=== PATIENT | male | born 1955 | race Caucasian/White ===

== ENCOUNTER → 2020-03-04 11:34 | Outpatient (BNVA) | payer OTHER, SELFPAY | PROVIDERS: Visit Provider Family Medicine | DX: H81.10 Benign paroxysmal vertigo, unspecified ear (principal); I10 Essential (primary) hypertension; I48.91 Unspecified atrial fibrillation; F17.210 Nicotine dependence, cigarettes, uncomplicated | CPT/HCPCS: 80053; 80061; 85025 ==

== ENCOUNTER 2021-01-22 12:26 | Emergency (ER) | payer OTHER, SELFPAY ==
[2021-01-22 12:31] VITALS: BP 178/87; PULSE 88; RESP 20; TEMP 36.6; O2SAT 97; BMI 45.3
[2021-01-22 12:46] VITALS: BP 119/63; PULSE 69; RESP 16; TEMP 37.1; O2SAT 98
--- NOTE | 2021-01-22 12:51 | ED_ITS ---
HPI - Allergic Reaction General: Chief complaint: Allergic Reaction Stated complaint: Chest Pain, Rash over entire body, swollen hands Time Seen by Provider: 01/22/21 12:51 History of Present Illness: HPI narrative: Mr. Velásquez is a 65-year-old gentleman with history of atrial fibrillation and hypertension who presents emergency department due to a rash. Onset of rash was subacute last night at approximately 8 PM. He describes an itchy generalized rash that involves full body including palms and soles. He denies known environmental exposure and denies similar reactions in the past. Intensity of itching is moderate. The course has persisted. Of note the patient recently completed a course of Bactrim for a insect bite/cellulitis. Additionally he noted a short acting strange episode of right arm weakness and right leg numbness which has since re solved and occurred at rest starting yesterday. No headaches or other focal neurologic symptoms at this time. He additionally endorses moderate intensity chest pressure on the right anterior chest. No other typical cardiac features. No other specific exacerbating or alleviating factors identified. Review of Systems General: Reports: 10 or more systems reviewed and unremarkable except in HPI and below PFSH ED PFSH: Medical History Current smoker History of bladder cancer Hypertension Lone atrial fibrillation Family History Other Cancer Social History Smoking and tobacco status: current every day smoker Household members: spouse Marital status: service: Yes status: Retired branch: [employer] Current occupational status: retired Current gender identity: Male Physical Exam Narrative: EXAM NARRATIVE: GENERAL/CONSTITUTIONAL - well-appearing. No acute distress. Obese Eyes - PERRL, no conjunctival injection ENMT - Atraumatic external nose and ears. Moist mucous membranes NECK - supple. trachea midline CARDIOVASCULAR - regular rate and rhythm. Peripheral pulses 2+ and equal RESPIRATORY -clear to auscultation bilaterally. No retractions or accessory muscle use. ABDOMEN/GI - Nontender/Nondistended. No tenderness to percussion or evidence of peritonitis MSK - Extremities without obvious deformity or tenderness to palpation SKIN - diffuse urticarial appearing rash though some lesions are not palpably raised which is atypical. There is swelling of the hands and feet associated with this. No vesicular lesions. No blistering or discrimination. No involvement of oral mucosa. NEURO - alert and appropriately oriented. strength and sensation intact. Moves all extremities equally. PSYCH - Appropriate mood and affect Course ED course: - Patient was seen and evaluated by me at bedside - Patient placed on cardiac monitors, IV access obtained - Initial evaluation notable for rash without evidence of anaphylaxis. -Symptom treatment ordered - Labs notable for mild leukocytosis though overall hemoconcentration. No significant metabolic abnormalities. Procalcitonin negative. Delta troponin negative. - Imaging notable for questionable opacity in the left lower lung which is felt to not be significant or require further imaging in the absence of pulmonary infectious symptoms and negative procalcitonin. This finding was discussed with the patient. CT imaging negative for acute finding. - Upon serial reexamination after treatment the patient was improved with improvement in the itchiness the rash persists. - Based on patient history, evaluation, labs, and imaging as interpreted the most likely cause of the patient's condition is likely allergic reaction. Rash appears most consistent with allergic reaction though nonspecific drug eruption related to recent Bactrim use it is also possible. - The results of ED evaluation were discussed with the patient including prescriptions and/or symptomatic cares (if applicable) including appropriate and responsible use, followup plan, and return precautions. The patient verbalized understanding and felt safe for discharge. - Patient discharged in satisfactory condition. Vital Signs: Vital signs: Vital Signs Temperature 98.7 F 01/22/21 12:46 Pulse Rate 74 01/22/21 16:33 Respiratory Rate 16 01/22/21 16:33 Blood Pressure 144/73 01/22/21 16:33 Pulse Oximetry 94 01/22/21 16:33 MDM - Allergic Reaction Medical Records: Attestation: I reviewed the patient's medical records. Lab Data: Attestation: I reviewed the patient's lab results. Labs: Lab Results 01/22/21 01/22/21 01/22/21 13:06 13:06 13:06 WBC 12.7 10^3/uL H 10 ^3/uL (4.0-10.0) RBC 6.01 10^6/uL H 10 ^6/uL (4.1-5.3) Hgb 16.4 g/dL g/dL (11.7-16.6) Hct 49.4 % % (42.0-52.0) MCV 82.2 fl fl (80-94) MCH 27.3 pg L pg (28.0-34.0) MCHC 33.2 g/dL g/dL (30.0-36.0) RDW 14.5 % % (12.1-15.1) Plt Count 294 10^3/cmm 10^3 /cmm (130-400) MPV 11.4 fL H fL (7.4-10.4) Neut % (Auto) 80.0 % % Lymph % (Auto) 13.8 % % [place] % (Auto) 5.3 % % Eos % (Auto) 0.2 % % Baso % (Auto) 0.2 % % Neut # (Auto) 10.19 10^3/uL H 1 0^3/uL (1.8-7.7) Lymph # (Auto) 1.8 10^3/uL 10^3/ uL (0.8-4.8) [place] # (Auto) 0.7 10^3/uL 10^3/ uL (0.2-0.9) Eos # (Auto) 0.0 10^3/uL 10^3/ uL (0.0-0.8) Baso # (Auto) 0.0 10^3/uL 10^3/ uL (0.0-0.1) Nucleated RBC % (a uto) 0 % % Nucleated RBCs # 0.0 /100WBC /100W BC Sodium 138 mmol/L mmol/L (136-145) Potassium 3.9 mmol/L mmol/L (3.5-5.1) Chloride 100 mmol/L mmol/L (98-107) Carbon Dioxide 27 mmol/L mmol/L (22-29) Anion Gap 14.9 (5-19) BUN 14 mg/dL mg/dL (8-23) Creatinine 0.7 mg/dL mg/dL (0.7-1.2) GFR Calculation 113.9 mL/min mL/m in (90-130) Glucose 103 mg/dL mg/dL (65-115) Calculated Osmolal ity 287 mOsm/kg mOsm/ kg (285-295) Lactate 1.3 mmol/L mmol/L (0.5-2.2) Calcium 9.6 mg/dL mg/dL (8.5-10.5) Total Bilirubin 0.7 mg/dL mg/dL (0.15-1.2) AST 13 U/L U/L (0-40) ALT 15 U/L U/L (0-41) Alkaline Phosphata se 77 IU/L IU/L (40-130) Troponin T Baselin e Troponin T 120 Min circle Delta Troponin T NT-Pro-B Natriuret Pep 44 pg/mL pg/mL (0-125) Total Protein 7.0 g/dL g/dL (6.6-8.7) Albumin 4.4 g/dL g/dL (3.5-5.2) Globulin 2.6 g/dL g/dL (1.3-4.6) Procalcitonin TSH 2.84 uIU/mL uIU/m L (0.27-4.20) Urine Color Urine Appearance Urine pH Ur Specific Gravit y Urine Protein Urine Glucose (UA) Urine Ketones Urine Blood Urine Nitrate Urine Bilirubin Urine Urobilinogen Ur Leukocyte Arabella ase 01/22/21 01/22/21 01/22/21 13:06 13:06 13:53 WBC RBC Hgb Hct MCV MCH MCHC RDW Plt Count MPV Neut % (Auto) Lymph % (Auto) [place] % (Auto) Eos % (Auto) Baso % (Auto) Neut # (Auto) Lymph # (Auto) [place] # (Auto) Eos # (Auto) Baso # (Auto) Nucleated RBC % (a uto) Nucleated RBCs # Sodium Potassium Chloride Carbon Dioxide Anion Gap BUN Creatinine GFR Calculation Glucose Calculated Osmolal ity Lactate Calcium Total Bilirubin AST ALT Alkaline Phosphata se Troponin T Baselin e 14 ng/L ng/L (0-15) Troponin T 120 Min circle Delta Troponin T NT-Pro-B Natriuret Pep Total Protein Albumin Globulin Procalcitonin 0.04 ng/mL ng/mL (0-0.5) TSH Urine Color Yellow (Yellow) Urine Appearance Clear (CLEAR) Urine pH 5 (5-7) Ur Specific Gravit y 1.020 (1.005-1.030) Urine Protein Neg (Negative) Urine Glucose (UA) Norm (Normal) Urine Ketones Negative (Negative) Urine Blood Neg (Negative) Urine Nitrate Negative (Negative) Urine Bilirubin Neg (Negative) Urine Urobilinogen 1 mg/dL H mg/dL (Negative) Ur Leukocyte Arabella ase Negative (Negative) 01/22/21 15:17 WBC RBC Hgb Hct MCV MCH MCHC RDW Plt Count MPV Neut % (Auto) Lymph % (Auto) [place]key % (Auto) Eos % (Auto) Baso % (Auto) Neut # (Auto) Lymph # (Auto) [place] # (Auto) Eos # (Auto) Baso # (Auto) Nucleated RBC % (a uto) Nucleated RBCs # Sodium Potassium Chloride Carbon Dioxide Anion Gap BUN Creatinine GFR Calculation Glucose Calculated Osmolal ity Lactate Calcium Total Bilirubin AST ALT Alkaline Phosphata se Troponin T Baselin e Troponin T 120 Min circle 12.02 ng/L ng/L (0-15) Delta Troponin T -1.98 ABS# L ABS# (0-10) NT-Pro-B Natriuret Pep Total Protein Albumin Globulin Procalcitonin TSH Urine Color Urine Appearance Urine pH Ur Specific Gravit y Urine Protein Urine Glucose (UA) Urine Ketones Urine Blood Urine Nitrate Urine Bilirubin Urine Urobilinogen Ur Leukocyte Arabella ase EKG Data^: EKG 1: Attestation: I personally reviewed and interpreted this EKG as follows: EKG interpretation date: 01/22/21 EKG interpretation time: 15:47 Interpretation: Sinus rhythm at a rate of 72. OK interval 173, QRS duration 100, QTc 434. Normal axis Interpretation: Sinus rhythm. PVC. Discharge Plan Discharge Patient Disposition: Home Clinical Impression: Allergic reaction, Chest pain, Paresthesia Condition: Stable Prescriptions: New prednisone 20 mg tablet See Rx Instructions .ROUTE .COMPLEX 10 Days Qty: 15 RF: 0 Pepcid 40 mg tablet 40 mg PO BID 10 Days Qty: 20 RF: 0 Benadryl Allergy 25 mg tablet 25 mg PO TID PRN (Reason: itching) Qty: 15 RF: 0 No Action sulfamethoxazole-trimethoprim [Bactrim DS] 800-160 mg tablet 1 tab PO BID 10 Days Qty: 20 RF: 0 Proctofoam HC 1-1 % foam 1 applic OK QID PRN (Reason: hemorrhoids) Qty: 10 RF: 2 diltiazem HCl [DILT-XR] 120 mg capsule,ext.rel 24h degradable See Rx Instructions .ROUTE .COMPLEX Qty: 90 RF: 0 valsartan-hydrochlorothiazide 320-12.5 mg tablet See Rx Instructions .ROUTE .COMPLEX Qty: 90 RF: 0 Discharge Orders: Discharge ED (Routine); Ordered 01/22/21 Ordered By: Mike Gomes Referrals: Sade Ramries MD [Primary Care Provider] - Discharge Diet: Usual diet Discharge Activity: Resume usual activity Patient Instructions: Chest Pain (ED), Urticaria (ED), Acute Rash (ED) Activity Restrictions/Additional Instructions: Thank you for visiting the emergency department. You were seen and evaluated for rash and chest pain. The exact cause of your symptoms is unclear. The rash appears more typical of an allergic reaction however sometimes there is overlap in appearance with nonspecific drug eruption. Please avoid Bactrim in the future. Please return to the emergency department for anything that you are concerned about and feel needs emergency department evaluation or as discussed including any sloughing, blistering, oral lesions, genital lesions. Please follow-up with your primary care provider. Coding Level of Care Code ED Cook Short Order for Lj Kolb
--- NOTE | 2021-01-22 13:23 | CTR_ITS ---
PROCEDURE INFORMATION: Exam: CT Head Without Contrast Exam date and time: 01/22/2021 1:23 PM Age: 65 years old Clinical indication: Arm weakness, right TECHNIQUE: Imaging protocol: Computed tomography of the head without contrast. Radiation optimization: All CT scans at this facility use at least one of these dose optimization techniques: automated exposure control; mA and/or kV adjustment per patient size (includes targeted exams where dose is matched to clinical indication); or iterative reconstruction. COMPARISON: No relevant prior studies available. RADIATION DOSE METRICS: Total DLP (mGy-cm): 911.09 FINDINGS: Brain: Normal. No hemorrhage. Unremarkable white matter. No mass effect. Cerebral ventricles: No ventriculomegaly. Paranasal sinuses: Visualized sinuses are unremarkable. No fluid levels. Mastoid air cells: Visualized mastoid air cells are well aerated. Bones/joints: Unremarkable. No acute fracture. Soft tissues: Unremarkable. CT/CT head wo con* [id number] IMPRESSION: No acute intracranial abnormality. Radiation Dose CTDIVOL = (mGy): DLP = 911.09 (mGy-cm)
--- NOTE | 2021-01-22 13:23 | XRR_ITS ---
PROCEDURE INFORMATION: Exam: XR Chest Exam date and time: 01/22/2021 1:23 PM Age: 65 years old Clinical indication: Pain; Chest pressure; Additional info: Chest pain TECHNIQUE: Imaging protocol: XR of the chest. Views: 1 view. COMPARISON: No relevant prior studies available. FINDINGS: Lungs: There are nonspecific hazy opacities overlying the left lower lung field. Pleural spaces: Unremarkable. No pleural effusion. No pneumothorax. Heart/Mediastinum: Unremarkable. No cardiomegaly. Bones/joints: Unremarkable. XR/XR chest 1V portable [id number] IMPRESSION: There are nonspecific hazy opacities overlying the left lower lung field. These may represent overlapping shadows however pneumonia cannot be excluded. Consider CT scan of the thorax for further evaluation if clinically warranted.
--- NOTE | 2021-01-22 13:24 | ECG_ITS ---
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
[2021-01-22 13:30] LABS: Basophils % 0.2 %; Eosinophils % 0.2 %; Hematocrit 49.4 % (42.0-52.0); Hemoglobin 16.4 g/dL (11.7-16.6); Lymphocytes # 1.8 10^3/uL (0.8-4.8); Lymphocytes % 13.8 %; Mean Corpuscular HGB Conc 33.2 g/dL (30.0-36.0); Mean Corpuscular Hemoglobin 27.3 pg (28.0-34.0); Mean Corpuscular Volume 82.2 fl (80-94); Mean Platelet Volume 11.4 fL (7.4-10.4); Monocytes # 0.7 10^3/uL (0.2-0.9); Monocytes % 5.3 %; Neutrophils # 10.19 10^3/uL (1.8-7.7); Nucleated Red Blood Cells % 0 %; Platelet Count 294 10^3/cmm (130-400); Red Blood Count 6.01 10^6/uL (4.1-5.3); Red Cell Distribution Width 14.5 % (12.1-15.1); White Blood Count 12.7 10^3/uL (4.0-10.0)
[2021-01-22 13:51] LABS: Troponin(5th) Baseline 14 ng/L (0-15)
[2021-01-22 13:54] LABS: Lactate (Lactic Acid level) 1.3 mmol/L (0.5-2.2)
[2021-01-22 14:04] LABS: Alanine Aminotransferase 15 U/L (0-41); Albumin Level 4.4 g/dL (3.5-5.2); Alkaline Phosphatase 77 IU/L (40-130); Anion Gap 14.9 (5-19); Aspartate Amino Transferase 13 U/L (0-40); Blood Urea Nitrogen 14 mg/dL (8-23); Calcium 9.6 mg/dL (8.5-10.5); Carbon Dioxide 27 mmol/L (22-29); Chloride 100 mmol/L (98-107); Globulin 2.6 g/dL (1.3-4.6); Glomerular Filtration Rate 113.9 mL/min (90-130); Glucose 103 mg/dL (65-115); Osmolality Calculated 287 mOsm/kg (285-295); Potassium 3.9 mmol/L (3.5-5.1); Sodium 138 mmol/L (136-145); Thyroid Stimulating Hormone 2.84 uIU/mL (0.27-4.20); Total Bilirubin 0.7 mg/dL (0.15-1.2)
[2021-01-22 14:12] LABS: Add Urine Microscopic? NO; Charge for UA Resulting for Rev
[2021-01-22] MEDS: diphenhydrAMINE 50 mg/mL SDV 1mL 25 MG IVP (14:14)
[2021-01-22] MEDS: famotidine 20 mg/2 mL INJ 40 MG IVP (14:15)
[2021-01-22 14:20] LABS: Urine Appearance Clear (CLEAR); Urine Color Yellow (Yellow); pH Urine 5 (5-7)
[2021-01-22 14:21] LABS: Bilirubin Urine Neg (Negative); Blood Urine Neg (Negative); Glucose Urine UA Norm (Normal); Ketones Urine Negative (Negative); Nitrate Urine Negative (Negative); Protein Urine Neg (Negative); Urobilinogen Urine 1 mg/dL (Negative)
[2021-01-22 14:22] LABS: Leukocyte Esterase Urine Negative (Negative)
[2021-01-22 14:24] LABS: NT Pro B Type Natriuretic Pept 44 pg/mL (0-125)
[2021-01-22] MEDS: ondansetron 2 mg/ML SDV 2 mL 4 MG IVP (14:33)
[2021-01-22 14:35] VITALS: BP 154/78; PULSE 61; RESP 18; O2SAT 97
[2021-01-22 14:54] LABS: Procalcitonin 0.04 ng/mL (0-0.5)
[2021-01-22 15:55] LABS: Troponin 5 2HR 12.02 ng/L (0-15)
[2021-01-22 16:00] LABS: Troponin 5 2HR Delta -1.98 ABS# (0-10)
[2021-01-22 16:33] VITALS: BP 144/73; PULSE 74; RESP 16; O2SAT 94
== END 2021-01-22 16:32 | disposition home or self-care (01) ==
PROVIDERS: Emergency Provider Emergency Medicine; PCP Family Medicine
DX: R07.9 Chest pain, unspecified (principal); R20.2 Paresthesia of skin; T78.40XA Allergy, unspecified, initial encounter; Z85.51 Personal history of malignant neoplasm of bladder; I10 Essential (primary) hypertension; I48.91 Unspecified atrial fibrillation; F17.210 Nicotine dependence, cigarettes, uncomplicated
CPT/HCPCS: 36415; 70450; 71045; 80053; 81003; 83605; 83880; 84145; 84443; 84484; 85025; 93005; 96374; 96375; 99284; J1200; J2405; J2930; J3490

== ENCOUNTER 2021-07-03 12:57 | Observation (INO) | payer OTHER, SELFPAY ==
[2021-07-03] VITALS (16 sets, daily range): BP systolic 156–219; BP diastolic 79–111; PULSE 57–82; RESP 10–18; TEMP 36.2–36.6; O2SAT 92–97; BMI 45.9; BMI 47.3
--- NOTE | 2021-07-03 13:13 | XR_ITS ---
WS: [id number] Portable AP upright chest, 07/03/2021 Clinical Data: weakness Comparison: Portable chest, 01/22/2021. Findings: No nodules, masses or effusions are seen. The heart is enlarged. The pulmonary vascularity is not increased. No pneumonia or pneumothorax is seen. There is a left cardiophrenic fat pad or cyst . XR/XR chest 1V portable [id number] Impression: Cardiomegaly.
--- NOTE | 2021-07-03 13:13 | CTR_ITS ---
PROCEDURE INFORMATION: Exam: CT Head Without Contrast Exam date and time: 07/03/2021 1:13 PM Age: 66 years old Clinical indication: Weakness, extremity and weakness, facial; Left; Patient HX: C/O weakness and L sided facial droop TECHNIQUE: Imaging protocol: Computed tomography of the head without contrast. Radiation optimization: All CT scans at this facility use at least one of these dose optimization techniques: automated exposure control; mA and/or kV adjustment per patient size (includes targeted exams where dose is matched to clinical indication); or iterative reconstruction. COMPARISON: CT head wo con* [id number] 01/22/2021 1:43 PM RADIATION DOSE METRICS: Total DLP (mGy-cm): 1036.6 FINDINGS: Brain: Normal. No hemorrhage. Unremarkable white matter. No mass effect. Cerebral ventricles: No ventriculomegaly. Paranasal sinuses: Visualized sinuses are unremarkable. No fluid levels. Mastoid air cells: Visualized mastoid air cells are well aerated. Bones/joints: Unremarkable. No acute fracture. Soft tissues: Unremarkable. CT/CT head wo con* [id number] IMPRESSION: No acute intracranial abnormality.
[2021-07-03 13:22] LABS: Glucose Point of Care 101 mg/dL (70-110)
[2021-07-03 13:29] LABS: Basophils # 0.1 10^3/uL (0.0-0.1); Basophils % 0.6 %; Eosinophils # 0.1 10^3/uL (0.0-0.8); Eosinophils % 0.7 %; Hematocrit 52.9 % (42.0-52.0); Hemoglobin 17.4 g/dL (11.7-16.6); Lymphocytes # 2.9 10^3/uL (0.8-4.8); Lymphocytes % 33.1 %; Mean Corpuscular HGB Conc 32.9 g/dL (30.0-36.0); Mean Corpuscular Hemoglobin 27.1 pg (28.0-34.0); Mean Corpuscular Volume 82.4 fl (80-94); Mean Platelet Volume 11.5 fL (7.4-10.4); Monocytes # 0.9 10^3/uL (0.2-0.9); Monocytes % 9.6 %; Neutrophils # 4.95 10^3/uL (1.8-7.7); Neutrophils % 55.6 %; Nucleated Red Blood Cells % 0 %; Platelet Count 221 10^3/cmm (130-400); Red Blood Count 6.42 10^6/uL (4.1-5.3); Red Cell Distribution Width 14.5 % (12.1-15.1); White Blood Count 8.9 10^3/uL (4.0-10.0)
--- NOTE | 2021-07-03 13:35 | W.ED.NEUROSD ---
HPI - Neuro Symptoms/Deficit General: Chief Complaint: Neuro Symptoms/Deficit Stated Complaint: Stroke Symptoms Time Seen by Provider: 07/03/21 13:07 Source: patient Mode of arrival: ambulatory Limitations: no limitations History of Present Illness: 66-year-old male who states that he is concerned he may have had a stroke. He states that he went to bed last night at 9 PM and woke up this morning roughly 7 or 8 and states that he was brushing his teeth and noticed that he had left-sided facial droop he states he has been also having some numbness in his left arm as well. He is able to ambulate without any difficulties no slurred speech. No history of stroke or Chery's palsy in the past. Associated symptoms: Deny chest pain, nausea or vomiting Review of Systems Const: Denies: fever(s), chills, body aches or change in appetite Eyes: Denies: blurry vision or eye discomfort ENMT: Denies: throat pain or dental pain Card: Denies: chest pain Resp: Denies: dyspnea GI: Denies: abdominal pain, nausea, vomiting or diarrhea : Denies: dysuria Musc: Denies: neck pain or back pain Skin/Breast: Denies: rash Neuro: Reports: numbness in extremities Psych: Denies: depression Samuel/Lymph: Denies: easy bruising All/Imm: Denies: urticaria PFSH ED PFSH: Medical History Current smoker History of bladder cancer Hypertension Lone atrial fibrillation Family History Other Cancer Social History Smoking and tobacco status: current every day smoker Household members: spouse Marital status: service: Yes status: Retired branch: [employer] Current occupational status: retired Current gender identity: Male NIH stroke score NIHSS: Level Of Consciousness - 1a: 0 Level Of Consciousness Questions - 1b: Both Correct Level Of Consciousness Commands - 1c: Both Correct Best Gaze - 2: Normal Visual Monroy - 3: No Visual Loss Facial Palsy - 4: Partial Paralysis Motor Arm Right - 5: No Drift Motor Arm Left - 5: No Drift Motor Leg Right - 6: No Drift Motor Leg Left - 6: No Drift Limb Ataxia - 7: Absent Sensory - 8: Mild To Moderate Loss Best Language - 9: No Aphasia Dysarthia - 10: Normal Extinction And Inattention - 11: 0 Score: Total Score: 3 Physical Exam Const: COMMON NORMALS: no acute distress, patient oriented x3 and healthy appearing HENMT: COMMON NORMALS: normocephalic and atraumatic HEAD & SCALP: normocephalic and atraumatic Eye: COMMON NORMALS: Equal, round and reactive pupils present and EOMs intact bilaterally PUPIL: Yes Equal, round and reactive pupils present Neck/C-Spine: COMMON NORMALS: full ROM and supple Chest: COMMONS NORMALS: normal inspection of the chest and normal palpation of entire chest wall Resp: COMMON NORMALS: normal respiratory effort, No retractions, No use of accessory muscles and clear to auscultation bilaterally AUSCULTATION: clear to auscultation bilaterally Cardio: COMMON NORMALS: regular rate, regular rhythm and No murmurs present (Cardio) RATE: regular rate RHYTHM: regular rhythm GI: COMMON NORMALS: Normal to inspection, nondistended, normoactive bowel sounds present, Soft to palpation, non-tender and no masses PALPATION: Yes Soft to palpation Extremity: COMMON NORMALS: normal to inspection and full ROM Neuro: COMMON NORMALS: patient oriented x3, moves all extremities and no focal motor deficits SPEECH: speech normal GAIT: Yes Normal gait present MOTOR EXAM: 5/5 motor strength present throughout OTHER: Slight left-sided facial droop Psych: COMMON NORMALS: mental status grossly normal, Normal thought process present and cooperative THOUGHT PROCESS: Normal thought process present Skin: COMMON NORMALS: no rashes or lesions noted and no wounds GENERAL SKIN EXAM: no rashes or lesions noted Course Vital Signs: Vital signs: Vital Signs Temperature 97.7 F 07/03/21 13:01 Pulse Rate 68 07/03/21 13:06 Respiratory Rate 18 07/03/21 13:06 Blood Pressure 219/96 07/03/21 13:06 Pulse Oximetry 96 07/03/21 13:06 MDM - Neuro Symptoms/Deficit Medical Decision Making Patient presents here with some left-sided facial weakness. Still has involvement of his eyebrow could be Chery's palsy but also has some numbness as well will admit for rule out for CVA likely needs an MRI. His last known normal was last night so is not a TPA candidate. Lab Data : 07/03/21 13:18 07/03/21 13:[address] 07/03/21 13:13 IMPRESSION: No acute intracranial abnormality. Laboratory Results WBC 8.9 10^3/uL (4.0-10.0) 07/03/21 13:18 RBC 6.42 10^6/uL (4.1-5.3) H 07/03/21 13:18 Hgb 17.4 g/dL (11.7-16.6) H 07/03/21 13:18 Hct 52.9 % (42.0-52.0) H 07/03/21 13:18 MCV 82.4 fl (80-94) 07/03/21 13:18 MCH 27.1 pg (28.0-34.0) L 07/03/21 13:18 MCHC 32.9 g/dL (30.0-36.0) 07/03/21 13:18 RDW 14.5 % (12.1-15.1) 07/03/21 13:18 Plt Count 221 10^3/cmm (130-400) 07/03/21 13:18 MPV 11.5 fL (7.4-10.4) H 07/03/21 13:18 Neut % (Auto) 55.6 % 07/03/21 13:18 Lymph % (Auto) 33.1 % 07/03/21 13:18 [place] % (Auto) 9.6 % 07/03/21 13:18 Eos % (Auto) 0.7 % 07/03/21:18 Baso % (Auto) 0.6 % 07/03/21 13:18 Neut # (Auto) 4.95 10^3/uL (1.8-7.7) 07/03/21 13:18 Lymph # (Auto) 2.9 10^3/uL (0.8-4.8) 07/03/21:18 [place] # (Auto) 0.9 10^3/uL (0.2-0.9) 07/03/21 13:18 Eos # (Auto) 0.1 10^3/uL (0.0-0.8) 07/03/21 13:18 Baso # (Auto) 0.1 10^3/uL (0.0-0.1) 07/03/21 13:18 Nucleated RBC % (auto) 0 % 07/03/21 13:18 Nucleated RBCs # 0.0 /100WBC 07/03/21 13:18 PT 12.20 SECONDS (12.1-14.9) 07/03/21 13:18 INR 0.88 (0.8-1.2) 07/03/21 13:18 Sodium 136 mmol/L (136-145) 07/03/21 13:18 Potassium 4.1 mmol/L (3.5-5.1) 07/03/21 13:18 Chloride 99 mmol/L (98-107) 07/03/21 13:18 Carbon Dioxide 25 mmol/L (22-29) 07/03/21 13:18 Anion Gap 16.1 (5-19) 07/03/21 13:18 BUN 12 mg/dL (8-23) 07/03/21 13:18 Creatinine 0.7 mg/dL (0.7-1.2) 07/03/21 13:18 GFR Calculation 113.5 mL/min (90-130) 07/03/21 13:18 Glucose 109 mg/dL (65-115) 07/03/21 13:18 POC Glucose 101 mg/dL (70-110) 07/03/21 13:20 Calculated Osmolality 282 mOsm/kg (285-295) L 07/03/21 13:18 Calcium 9.2 mg/dL (8.5-10.5) 07/03/21 13:18 Total Bilirubin 0.5 mg/dL (0.15-1.2) 07/03/21 13:18 AST 26 U/L (0-40) 07/03/21 13:18 ALT 21 U/L (0-41) 07/03/21 13:18 Alkaline Phosphatase 80 IU/L (40-130) 07/03/21 13:18 Total Protein 7.6 g/dL (6.6-8.7) 07/03/21 13:18 Albumin 4.7 g/dL (3.5-5.2) 07/03/21 13:18 Globulin 2.9 g/dL (1.3-4.6) 07/03/21 13:18 Discharge Plan Discharge Admit Provider: Tammy Verde Condition: Stable Coding Level of Care Code ED Clinical Psychologist for Chg Fwd Exam Comprehensive
[2021-07-03 13:57] LABS: INR 0.88 (0.8-1.2)
[2021-07-03 14:04] LABS: Alanine Aminotransferase 21 U/L (0-41); Albumin Level 4.7 g/dL (3.5-5.2); Alkaline Phosphatase 80 IU/L (40-130); Blood Urea Nitrogen 12 mg/dL (8-23); Calcium 9.2 mg/dL (8.5-10.5); Carbon Dioxide 25 mmol/L (22-29); Chloride 99 mmol/L (98-107); Globulin 2.9 g/dL (1.3-4.6); Glomerular Filtration Rate 113.5 mL/min (90-130); Glucose 109 mg/dL (65-115); Osmolality Calculated 282 mOsm/kg (285-295); Sodium 136 mmol/L (136-145); Total Bilirubin 0.5 mg/dL (0.15-1.2); Total Protein 7.6 g/dL (6.6-8.7)
[2021-07-03 14:09] LABS: Anion Gap 16.1 (5-19); Aspartate Amino Transferase 26 U/L (0-40); Potassium 4.1 mmol/L (3.5-5.1)
--- NOTE | 2021-07-03 14:43 | PC.NURSE ---
Patient placed in CSU, as MS overflow for bed assignment. HS attempted to phone MD X2, with no answer.
--- NOTE | 2021-07-03 15:30 | ECG_ITS ---
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 Measurements Intervals [place] Rate: 65 P: 64 FL: 164 QRS: 11 QRSD: 116 T: 53 QT: 385 QTc: 402 Interpretive Statements SINUS RHYTHM WITH SINUS ARRHYTHMIA POSSIBLE LEFT ATRIAL ENLARGEMENT [-0.1mV P-WAVE IN V1/V2] MODERATE INTRAVENTRICULAR CONDUCTION DELAY [110+ ms QRS DURATION] Compared to ECG 01/22/2021 15:38:19 Intraventricular conduction delay now present Ventricular premature complex(es) no longer present T-wave abnormality no longer present Electronically Signed On 07-04-2021 21:10:07 CDT by Larry Calhoun M.D. [id number] f
--- NOTE | 2021-07-03 15:57 | PC.NURSE ---
pt received into room 103 from er at 1525.report received.pt is alert and awake and oriented x 4.sr on monitor.dr larson notified of pt's arrival and that bp is 165/111.pt states that approx 5 hrs ago he noticed droop of left mouth..numbness on left side of face and a trembling sensation in left arm and leg.oriented to room environment.instructed to notify staff for any dizziness,increase in numbness,headache...or for any concerns at all.pt verb understanding of instructions
--- NOTE | 2021-07-03 16:02 | PM.HP ---
Providers/Chief Complaint Admitting Physician: Tammy Verde MD Primary Care Provider: Sade Ramires MD Chief Complaint: Stroke Symptoms History of Present Illness Romulo Velásquez is a 66 year old male who went to bed last night without any neurological focal deficits, woke up this morning experiencing left-sided facial numbness, he noticed it when he went to the bathroom to brush his teeth. No recent fever, tick bite, change in antibiotics recent fall, chest pain or shortness of breath. No recent diarrhea. He has not noticed any weakness of his arms or legs however endorsing numbness of left arm. 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 NIH 0 Minimal left-sided facial droop He is able to wrinkle and close his left eye Hypertensive urgency, given 1 dose of labetalol, Review of Systems Const: Denies: chills Eyes: Denies: change in vision ENMT: Denies: throat pain Card: Denies: chest pain Resp: Denies: dyspnea GI: Denies: abdominal pain : Denies: flank pain Musc: Denies: neck pain Skin/Breast: Denies: rash Neuro: Reports: numbness in extremities; Denies: headache(s) Psych: Denies: anxiety Endo: Denies: polyuria Samuel/Lymph: Denies: easy bruising All/Imm: Denies: urticaria Medications/Allergies Home Medications Medication Instructions Recorded Confirmed Last Taken Type diltiazem HCl 120 mg 120 mg PO DAILY 07/03/21 07/03/21 07/03/21 History capsule,extended release 24 hr, controlled (DILT-XR) valsartan 320 1 tab PO DAILY 07/03/21 07/03/21 07/03/21 History mg-hydrochlorothiazide 12.5 mg tablet Allergies Allergy/AdvReac Type Severity Reaction Status Date / Time acetaminophen [From Tylox] Allergy unknown Verified 12/30/20 10:56 amlodipine [From Lotrel] Allergy Unknown Verified 12/30/20 10:56 benazepril [From Lotrel] Allergy Unknown Verified 12/30/20 10:56 oxycodone [From Tylox] Allergy unknown Verified 12/30/20 10:56 PFSH Acute PFSH: Medical History (Updated 07/03/21 @ 18:22 by Tammy Verde MD) Current smoker History of bladder cancer Hypertension Lone atrial fibrillation Surgical History (Updated 07/03/21 @ 18:21 by Tammy Verde MD) No pertinent past surgical history Family History Other Cancer Social History Smoking and tobacco status: current every day smoker Household members: spouse Marital status: service: Yes status: Retired branch: [employer] Current occupational status: retired Current gender identity: Male Vitals/I&O/Wt Last Vital Signs Temp 97.7 F 07/03/21 13:01 Pulse 71 07/03/21 15:17 Resp 18 07/03/21 15:17 BP 196/84 07/03/21 15:17 Pulse Ox 92 07/03/21 14:30 Weight last 48 hrs Weight 145.15 kg Physical Exam Narrative: Left-sided Chery's palsy Able to frown and close his left eye, not producing saliva Left-sided facial droop NIH 0 Nonfocal neuro deficit Sensation intact No motor weakness S1, S2 No audible stridor or wheezing Morbidly obese Abdomen soft, distended Appropriate mood and affect Data : 07/03/21 13:18 07/03/21 13:18 A&P Assessment and plan (1) Chery's palsy: Status: Acute Plan Chery's palsy NIH 0-1 facial droop: Left-sided, no significant eye weakness No Need of eye patch for now We will obtain MRI head in the morning No active neurological deficits noted Start steroids 60 mg for the next 7 days and then taper down gradually We will give 1 dose of valacyclovir Afebrile Hypertensive urgency: Given 1 dose of labetalol Start home regimen Cardiac diet Plan to discharge him tomorrow DVT prophylaxis Lovenox Attestations Medical Necessity Statement*: dc within 48 hours Time Spent in Patient Care: 35min Coding Level of Care Code Acute Hospital Coordinator for [facility] Fwd Diagnoses Chery's palsy G51.0
[2021-07-03] MEDS: labetalol 5 mg/mL SDV 20mL 10 MG IVP (16:08)
[2021-07-03] MEDS: enoxaparin 40 mg/0.4 mL Syringe SUBCUT (16:38)
[2021-07-03] MEDS: valACYclovir 1,000 mg Tablet 1000 MG PO (16:38)
[2021-07-03 16:55] LABS: Glucose Point of Care 122 mg/dL (70-110)
[2021-07-03 18:56] LABS: Estmated Average Glucose 126
[2021-07-03] MEDS: predniSONE 20 mg Tablet 60 MG PO (18:59)
[2021-07-03 19:04] LABS: Chol HDL Ratio 6.76 mg/dL (1.0-5.00); Cholesterol 277 mg/dL (0-200); HDL Cholesterol 41 mg/dL (60-100); LDL Cholesterol Calculated 192 mg/dL (50-129); LDL HDL Ratio 4.68 RATIO (0.00-3.22); Thyroid Stimulating Hormone 5.22 uIU/mL (0.27-4.20); Triglycerides 222 mg/dL (0-150)
[2021-07-03 20:39] LABS: Glucose Point of Care 117 mg/dL (70-110)
[2021-07-04] VITALS (8 sets, daily range): BP systolic 156–201; BP diastolic 83–102; PULSE 59–76; RESP 17–18; TEMP 36.1–36.9; O2SAT 94–97
[2021-07-04 04:55] LABS: Anion Gap 16.2 (5-19); Blood Urea Nitrogen 14 mg/dL (8-23); Calcium 9.1 mg/dL (8.5-10.5); Carbon Dioxide 24 mmol/L (22-29); Chloride 102 mmol/L (98-107); Glomerular Filtration Rate 113.5 mL/min (90-130); Glucose 188 mg/dL (65-115); Osmolality Calculated 291 mOsm/kg (285-295); Potassium 4.2 mmol/L (3.5-5.1); Sodium 138 mmol/L (136-145)
[2021-07-04 06:44] LABS: Glucose Point of Care 135 mg/dL (70-110)
[2021-07-04] MEDS: losartan 50 mg Tablet 100 MG PO (08:21)
[2021-07-04] MEDS: predniSONE 20 mg Tablet 60 MG PO (08:21)
[2021-07-04] MEDS: hydroCHLOROthiazide 25 mg Tablet 12.5 MG PO (08:22)
[2021-07-04 08:32] LABS: Free T4 Free Thyroxine 0.91 ng/dL (0.82-1.77)
--- NOTE | 2021-07-04 08:51 | PC.NURSE ---
Physician orders Hold cardizem this morning d/t bradycardia in the 50's.
--- NOTE | 2021-07-04 09:15 | P.DS_ITS ---
Discharge Providers Date of Admission: 07/03/21 14:24 Date of Discharge: July 04, 2021 Attending Provider at Admission: Tammy Verde MD Attending Provider at Discharge: Tammy Verde MD Primary Care Provider: Sade Ramires MD Diagnoses at Discharge Discharge Diagnosis (1) Chery's palsy: Status: Acute Reason for Visit Reason for Visit: Stroke Symptoms Hospital Course Hospital Course 66-year male who present to the hospital after noticing left-sided facial droop and numbness of his left arm. He was diagnosed with Chery's palsy at the time of admission. I have started him on steroids. Valacyclovir 1 dose was given. NIH 0 MRI head requested. He remained hypertensive during his hospitalization, takes long-acting Cardizem, valsartan and hydrochlorothiazide antihypertensive regimen, his blood pressure does improve after taking his oral antihypertensive. He only received 1 dose of IV labetalol for hypertensive urgency. His hemoglobin A1c is 6, dyslipidemia persistent. He was counseled on steroid tapering regimen NIH 0 He is being discharged in stable condition I have added Imdur to his oral antihypertensive regimen. His long-acting Cardizem held because of bradycardic events noted during hospitalization I would not continue valacyclovir, I do not see any signs of herpes infection. Physical Exam Narrative: NIH 0 Nonfocal neuro exam Left-sided facial droop He is able to close his left eye, no signs of conjunctivitis No dysphagia Good strength of upper and lower extremity No gait ataxia S1, S2 Blood pressure 156/83 mmHg Saturating well on room air Morbid obese Distended abdomen with obesity Discharge Data Studies Completed and Pending Completed Studies During Hospitalization Category Date Time Status CT head wo con* [id number] Urgent Cat Scan 07/03/21 13:13 Completed XR chest 1V portable [id number] Urgent Exams 07/03/21 13:13 Completed Pending at discharge Category Date Time Status MR head wo con* [id number] Routine MRI 07/04/21 10:00 Ordered Radiology Impressions Chest X-Ray 07/03/21 13:13 Impression: Cardiomegaly. Head CT 07/03/21 13:13 IMPRESSION: No acute intracranial abnormality. Laboratory Results WBC 8.9 10^3/uL (4.0-10.0) 07/03/21 13:18 RBC 6.42 10^6/uL (4.1-5.3) H 07/03/21 13:18 Hgb 17.4 g/dL (11.7-16.6) H 07/03/21 13:18 Hct 52.9 % (42.0-52.0) H 07/03/21 13:18 MCV 82.4 fl (80-94) 07/03/21 13:18 MCH 27.1 pg (28.0-34.0) L 07/03/21 13:18 MCHC 32.9 g/dL (30.0-36.0) 07/03/21 13:18 RDW 14.5 % (12.1-15.1) 07/03/21 13:18 Plt Count 221 10^3/cmm (130-400) 07/03/21 13:18 MPV 11.5 fL (7.4-10.4) H 07/03/21 13:18 Neut % (Auto) 55.6 % 07/03/21 13:18 Lymph % (Auto) 33.1 % 07/03/21 13:18 [place] % (Auto) 9.6 % 07/03/21 13:18 Eos % (Auto) 0.7 % 07/03/21 13:18 Baso % (Auto) 0.6 % 07/03/21 13:18 Neut # (Auto) 4.95 10^3/uL (1.8-7.7) 07/03/21 13:18 Lymph # (Auto) 2.9 10^3/uL (0.8-4.8) 07/03/21 13:18 [place] # (Auto) 0.9 10^3/uL (0.2-0.9) 07/03/21 13:18 Eos # (Auto) 0.1 10^3/uL (0.0-0.8) 07/03/21 13:18 Baso # (Auto) 0.1 10^3/uL (0.0-0.1) 07/03/21 13:18 Nucleated RBC % (auto) 0 % 07/03/21 13:18 Nucleated RBCs # 0.0 /100WBC 07/03/21 13:18 PT 12.20 SECONDS (12.1-14.9) 07/03/21 13:18 INR 0.88 (0.8-1.2) 07/03/21 13:18 Sodium 138 mmol/L (136-145) 07/04/21 04:05 Potassium 4.2 mmol/L (3.5-5.1) 07/04/21 04:05 Chloride 102 mmol/L (98-107) 07/04/21 04:05 Carbon Dioxide 24 mmol/L (22-29) 07/04/21 04:05 Anion Gap 16.2 (5-19) 07/04/21 04:05 BUN 14 mg/dL (8-23) 07/04/21 04:05 Creatinine 0.7 mg/dL (0.7-1.2) 07/04/21 04:05 GFR Calculation 113.5 mL/min (90-130) 07/04/21 04:05 Glucose 188 mg/dL (65-115) H 07/04/21 04:05 POC Glucose 135 mg/dL (70-110) H 07/04/21 06:37 Estimat Average Glucose 126 07/03/21 13:18 Hemoglobin A1c 6.0 % (4.0-6.0) 07/03/21 13:18 Calculated Osmolality 291 mOsm/kg (285-295) 07/04/21 04:05 Calcium 9.1 mg/dL (8.5-10.5) 07/04/21 04:05 Total Bilirubin 0.5 mg/dL (0.15-1.2) 07/03/21 13:18 AST 26 U/L (0-40) 07/03/21 13:18 ALT 21 U/L (0-41) 07/03/21 13:18 Alkaline Phosphatase 80 IU/L (40-130) 07/03/21 13:18 Total Protein 7.6 g/dL (6.6-8.7) 07/03/21 13:18 Albumin 4.7 g/dL (3.5-5.2) 07/03/21 13:18 Globulin 2.9 g/dL (1.3-4.6) 07/03/21 13:18 Triglycerides 222 mg/dL (0-150) H 07/03/21 13:18 Cholesterol 277 mg/dL (0-200) H 07/03/21 13:18 LDL Cholesterol, Calc 192 mg/dL (50-129) H 07/03/21 13:18 HDL Cholesterol 41 mg/dL (60-100) L 07/03/21 13:18 LDL/HDL Ratio 4.68 RATIO (0.00-3.22) H 07/03/21 13:18 Cholesterol/HDL Ratio 6.76 mg/dL (1.0-5.00) H 07/03/21 13:18 TSH 5.22 uIU/mL (0.27-4.20) H 07/03/21 13:18 Free T4 0.91 ng/dL (0.82-1.77) 07/04/21 04:05 Vitals Last Vital Signs Temp 98.5 F 07/04/21 08:54 Pulse 76 07/04/21 08:54 Resp 18 07/04/21 08:54 BP 156/83 07/04/21 08:54 Pulse Ox 95 07/04/21 08:54 Discharge Plan Discharge Patient Disposition: Home Condition: Stable Prescriptions: New prednisone 20 mg tablet 20 mg PO DAILY Qty: 10 0RF isosorbide mononitrate 30 mg tablet extended release 24 hr 30 mg PO DAILY Qty: 30 3RF aspirin [Aspirin Low Dose] 81 mg tablet,delayed release (DR/EC) 81 mg PO DAILY Qty: 30 0RF atorvastatin 40 mg tablet 40 mg PO DAILY Qty: 30 0RF clopidogrel [Plavix] 75 mg tablet 75 mg PO DAILY Qty: 20 0RF Continued valsartan-hydrochlorothiazide 320-12.5 mg tablet 1 tab PO DAILY 0RF Discontinued diltiazem HCl [DILT-XR] 120 mg capsule,ext.rel 24h degradable 120 mg PO DAILY 0RF Discharge Orders: Discharge Order (Routine); Ordered 07/04/21 Ordered By: Tammy Verde Referrals: Sade Ramires MD [Primary Care Provider] - 7-10 days Discharge Diet: Cardiac Discharge Activity: Increase activity as tolerated Patient Instructions: Opioid Safety Discharge Attestations Time Spent in Discharge Care*: less than 30 min Quality Metrics Clinical Quality Measures [ No reported AMI, CVA or VTE this stay] Coding Level of Care Code Acute Chg FW DC note Diagnoses Chery's palsy G51.0
--- NOTE | 2021-07-04 10:30 | MR_ITS ---
WS: [id number] MRI HEAD WITHOUT CONTRAST TECHNIQUE: Sagittal T1, T2 axial, T2 axial FLAIR, axial and coronal T1 images, axial susceptibility w eighted imaging, axial diffusion weighted images, and coronal T2 images were obtained. CLINICAL INFORMATION: bells palsy COMPARISON: CT July 03, 2021 FINDINGS: No evidence of restricted diffusion to suggest acute ischemia. Ventricular system and basal cisterns are patent. Normal chino-white differentiation. One or 2 tiny foci of T2 hyperintensity in the periven tricular and subcortical white matter. Normal vascular flow voids at the skull base. No extra-axial f luid collections. No evidence of mass or mass effect. Mild mucosal thickening in the paranasal sinuse s. Mastoid air cells well aerated. No hemosiderin on susceptibly weighted images. Normal optic chiasm and pituitary infundibulum. Mild s ymmetric atrophy temporal lobes and hippocampal formations. Possible focus of T2 signal abnormality in the LEFT amygdala best seen on the coronal imaging measuri ng 7.5 mm. This is too small to further assess. This can be further evaluated with gadolinium enhance ment and high-resolution imaging through the temporal lobes. MR/MR head wo con* [id number] IMPRESSION: 1. No evidence of restricted diffusion to suggest acute ischemia. 2. Possible T2 hyperintense nodule involving the LEFT lingula measuring 7.5 mm . This can be further evaluated with postgadolinium imaging and high-resolution imaging through the temporal lobes. 3. Otherwise no suspicious intracranial signal abnormalities. No significant p arenchymal volume loss. 4. No hemosiderin on susceptibly weighted images. 5. Mild inflammatory changes in the paranasal sinuses.
--- NOTE | 2021-07-04 10:35 | PC.CHAP ---
Pastoral Care Encounter/Spiritual Assessment Type of Contact [] Declined lead technical architect visit [] Patient/Family/Request visit [] Outpatient visit [] Follow-up visit [] Physician referral [] Code/Alert [x] Routine visit [] Staff referral [] Actively dying [] Patient sleeping [x] Family support [] [] Out of room [] Palliative care [] [] Receiving care in room [] Pre-surgical visit [] Trauma [] Long length of stay [] ICU visit [] Other: Relational/Emotional Strength [] Patient feels connected with others/family/visitors/staff [] Distress [] Loneliness/isolation [] Abandonment Spirituality of Patient [] Person of Barbara [] Attends Temple of their [place] [] Believes in Prayer [] Reads Bible or Gnosticism materials [] There are Spiritual issues to be addressed 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 Interventions [x] Prayer [x] Active listening [x] Non-anxious presence [x] Spiritual/emotional support [] Crisis/trauma care [] Spiritual counseling [] Bereavement support [] Provided bereavement packet [] Provided Bible/devotional materials [] Provided toy/stuffed animal, coloring book to patient or family member [] Provided Communion [] Anointing/[place] [] Salvation [x] Completed spiritual assessment [] Other: Impact on Illness or Injury [] Angry [] Fearful [] Anxious [] Often cries [] Exhaustion [] Unable to work [] Unable to attend christian [] Unable to walk/stand [] Unable to read [] Unable to drive [] Unable to eat/drink [] Unable to sleep [] Unable to be with family [] Patient intubated [] Other: Summary waiting for MRI... left side fallen a little Time spent with patient 10 min
[2021-07-04 11:46] LABS: Glucose Point of Care 139 mg/dL (70-110)
--- NOTE | 2021-07-04 11:46 | MR_ITS ---
WS: [id number] MRI OF THE HEAD WITH GADOLINIUM ENHANCEMENT. INDICATION: Lesion seen on prior noncontrast imaging TECHNIQUE: Sagittal T1, coronal T2 thin, coronal T1 thin, multiplanar post gadolinium imaging was obt ained. FINDINGS: Previously described T2 hyperintense lesion in the amygdala is not seen on the high-resolut ion coronal imaging on this study. Mild symmetric atrophy temporal lobes and hippocampal formations. Normal optic chiasm and pituitary infundibulum. Proximal 7th and 8th cranial nerves appear normal. No hydrocephalus. No abnormal gadolinium enhancement. Normal visualized dural venous sinuses. Normal posterior nasophar ynx. MR/MR head w con [id number] IMPRESSION: 1. No abnormalities visualized in the LEFT temporal lobe or amygdala. Normal h ippocampal formations with mild symmetric atrophy. Previously described finding s likely due to volume averaging artifact. 2. No abnormal gadolinium enhancement. 3. No other significant findings.
[2021-07-04] MEDS: gadobenate dimeglumine 20 mL vial IV (16:26)
[2021-07-04 16:50] LABS: Glucose Point of Care 141 mg/dL (70-110)
--- NOTE | 2021-07-04 18:31 | PC.NURSE ---
Patient discharge education provided to self and spouse. No questions or concerns. Follow up has been made with PCP. IV removed. Patient left via wheelchair.
== END 2021-07-04 16:15 | disposition home or self-care (01) ==
LOC: ER 14:27 → CSU 14:42
PROVIDERS: Admitting Provider Internal Medicine; Emergency Provider Emergency Medicine; PCP Family Medicine; Visit Provider Internal Medicine
DX: G51.0 Bell's palsy (principal); F17.210 Nicotine dependence, cigarettes, uncomplicated; Z85.51 Personal history of malignant neoplasm of bladder; I10 Essential (primary) hypertension; I48.91 Unspecified atrial fibrillation
CPT/HCPCS: 36415; 36416; 70450; 70551; 70552; 71045; 80048; 80053; 80061; 82962; 83036; 84439; 84443; 85025; 85610; 93005; 96372; A9577; G0378; J1650; J3490; J7512

== ENCOUNTER → 2021-07-13 11:58 | Outpatient (BNVA) | payer OTHER, SELFPAY | PROVIDERS: PCP Family Medicine; Visit Provider Family Medicine | DX: R53.83 Other fatigue (principal) | CPT/HCPCS: 84403 ==

== ENCOUNTER → 2022-12-01 11:54 | Outpatient (BNVA) | payer MEDICARE, OTHER, SELFPAY | PROVIDERS: PCP Family Medicine; Visit Provider Family Medicine | DX: I10 Essential (primary) hypertension (principal) | CPT/HCPCS: 80053; 80061; 84443; 85025 ==

== ENCOUNTER → 2023-08-15 13:28 | Outpatient (BNVA) | payer MEDICARE, OTHER, SELFPAY | PROVIDERS: PCP Family Medicine; Visit Provider Family Medicine | DX: I10 Essential (primary) hypertension (principal); M77.10 Lateral epicondylitis, unspecified elbow; I48.91 Unspecified atrial fibrillation; E78.5 Hyperlipidemia, unspecified; Z78.9 Other specified health status | CPT/HCPCS: 80053; 80061; 84443; 85025 ==

== ENCOUNTER → 2024-01-21 14:49 | Outpatient (BNVA) | payer MEDICARE, OTHER, SELFPAY | PROVIDERS: PCP Nurse Practitioner; Visit Provider Nurse Practitioner | DX: I10 Essential (primary) hypertension (principal) | CPT/HCPCS: 80053; 80061; 81000; 85025 ==

== ENCOUNTER 2024-02-18 06:38 | Outpatient (CLI) | payer MEDICARE, OTHER, SELFPAY ==
--- NOTE | 2024-02-18 08:00 | CT_ITS ---
WS: [id number] CT chest wo con [id number] HISTORY: I10 - Essential (primary) hypertension TECHNIQUE: Axial imaging performed through the thorax. Coronal and sagittal reformats are submitted. All CT scans at [facility] use at least one of these dose optimization techniques: automated exposure control; mA and/or kV adjustment per patient size (includes targeted exams where dose is mat ched to clinical indication); or iterative reconstruction. CONTRAST: None DLP: 907.94 mGy.cm COMPARISON: None available. Lungs and central airway: Abnormal lungs. Bilateral tree-in-bud airspace disease and reticular nodula r pattern in the upper lungs. There are several peripheral nodules in the upper lung porras but grea test on the RIGHT. Largest nodules measure 5 mm. No mass. There is also hazy attenuation throughout b oth lungs. Lower lung porras are slightly better aerated. Pleura: Normal. No pleural effusion. Heart and pericardium: Moderate cardiomegaly. Mediastinum and franky: No mediastinum or hilar adenopathy. Vessels: Mild atherosclerosis aorta. No aneurysm. Normal size pulmonary artery. Chest wall and lower neck: No soft tissue masses. Upper abdomen: Small hiatal hernia. RIGHT adrenal adeno myolipoma. Fat-containing mass measures 1.4 x 1.7 cm. Osseous structures: Osteophytic ridging along the RIGHT lateral thoracic spine. CT/CT chest wo con [id number] IMPRESSION: 1. Bilateral upper lobe tree-in-bud airspace disease and reticular nodular pat tern. This is typically seen with endobronchial pneumonia and infection. The no dules measure up to 5 mm. No mass or dense consolidation. Recommend follow-up c hest CT in 3 months after treatment to ensure these changes resolve. 2. RIGHT adrenal adeno myolipoma. 3. Moderate cardiomegaly.
== END 2024-02-18 06:39 | disposition home or self-care (01) ==
PROVIDERS: PCP Nurse Practitioner; Visit Provider Nurse Practitioner
DX: I10 Essential (primary) hypertension (principal); Z87.891 Personal history of nicotine dependence; R91.8 Other nonspecific abnormal finding of lung field; D35.01 Benign neoplasm of right adrenal gland; I51.7 Cardiomegaly
CPT/HCPCS: 71250

== ENCOUNTER 2024-02-18 06:38 | Outpatient (CLI) | payer MEDICARE, OTHER, SELFPAY ==
--- NOTE | 2024-02-18 07:00 | USCV_ITS ---
Romulo Velásquez Age: 68 Gender: M : 1955 Exam Date: 02/18/2024 07:33 Ordering Phys: Lokesh Cortes Technologist: Exam Location: [facility] Indication: HTN BP: 140 / 67 HR: 73 Rhythm: Sinus Technical Quality: Adequate MEASUREMENTS (Male / Female) Normal Values 2D ECHO LV Diastolic Diameter PLAX 5.9 cm 4.2 - 5.9 / 3.9 - 5.3 cm IVS Diastolic Thickness 1.6 cm 0.6 - 1.0 / 0.6 - 0.9 cm IVS Systolic Thickness 1.7 cm LVPW Diastolic Thickness 1.6 cm 0.6 - 1.0 / 0.6 - 0.9 cm LVPW Systolic Thickness 1.8 cm LVOT Diameter 2.0 cm LV Ejection Fraction 2D Teich 60.6 % LV Ejection Fraction MOD 4C 62.5 % LV Ejection Fraction MOD 2C 53.4 % LV Ejection Fraction 2C AL 53.7 % LA Diameter 3.7 cm RA Systolic Volume 4C AL 123.3 ml RA Systolic Volume 4C MOD 119.5 ml LA Sys Volume AL 144.3 cm cubed LA Sys Volume Index AL 54.0 cm cubed/m squared Aorta at Sinotubular Diameter 3.4 cm M-MODE LA Ao Ratio MM 1.1 AV Cusp Separation MM 2.3 cm DOPPLER AV Peak Velocity 149.0 cm/s LVOT Peak Velocity 99.0 cm/s AV Area Cont Eq vti 2.2 cm squared AV Area Cont Eq pk 2.1 cm squared MV Area PHT 4.1 cm squared TR Peak Velocity 146.0 cm/s TR Peak Gradient 8.5 mmHg TV Peak E Velocity 85.0 cm/s Right Atrial Pressure 3.0 mmHg Pulmonary Artery Systolic Pressu 11.5 mmHg PV Peak Velocity 133.0 cm/s FINDINGS Left Ventricle Normal left ventricular size, systolic function and wall thickness, with no regional wall motion abnormalities. Left ventricular ejection fraction is estimated at 55 %. Grade I/IV diastolic dysfunction (abnormal relaxation filling pattern), normal to mildly elevated filling pressures. Right Ventricle The right ventricle is normal in size and function. Right Atrium The right atrium is normal in size. Left Atrium The left atrium is normal in size. Mitral Valve Moderately thickened mitral valve. No mitral valve stenosis. Mild mitral valve regurgitation. Aortic Valve Moderate aortic valve calcification. No aortic valve stenosis. Trace aortic valve regurgitation. Tricuspid Valve Structurally normal tricuspid valve without significant stenosis or regurgitation. Pulmonary artery systolic pressure is normal. Pulmonic Valve Structurally normal pulmonic valve without significant stenosis. There is no pulmonic regurgitation. Pericardium Normal pericardium without effusion. Aorta Normal ascending aorta dimension. IVC The inferior vena cava appears normal. CONCLUSIONS Normal left ventricular size, systolic function and wall thickness, with no regional wall motion abnormalities. Left ventricular ejection fraction is estimated at 55 %. Grade I/IV diastolic dysfunction (abnormal relaxation filling pattern), normal to mildly elevated filling pressures. Moderately thickened mitral valve. No mitral valve stenosis. Mild mitral valve regurgitation. There is no pericardial effusion. . Pulmonary artery systolic pressure is within normal limits. Right atrial pressure is around 5 mm of mercury. Tammy Fournier MD (Electronically Signed) Final Date: 18 February 2024 18:57 S
== END 2024-02-18 06:39 | disposition home or self-care (01) ==
PROVIDERS: PCP Nurse Practitioner; Visit Provider Nurse Practitioner
DX: I50.30 Unspecified diastolic (congestive) heart failure (principal); I34.81 Nonrheumatic mitral (valve) annulus calcification; I70.0 Atherosclerosis of aorta; I10 Essential (primary) hypertension
CPT/HCPCS: 93306

== ENCOUNTER → 2024-03-04 12:33 | Outpatient (BNVA) | payer MEDICARE, OTHER, SELFPAY | PROVIDERS: PCP Nurse Practitioner; Referring Provider Family Medicine; Visit Provider Internal Medicine Cardiovascular Disease | DX: I48.91 Unspecified atrial fibrillation (principal); I49.3 Ventricular premature depolarization; R94.31 Abnormal electrocardiogram [ECG] [EKG] | CPT/HCPCS: 93005 ==

== ENCOUNTER → 2024-05-29 09:27 | Outpatient (BNVA) | payer MEDICARE, OTHER, SELFPAY | PROVIDERS: PCP Nurse Practitioner; Visit Provider Nurse Practitioner | DX: Z12.5 Encounter for screening for malignant neoplasm of prostate (principal); I10 Essential (primary) hypertension; E78.2 Mixed hyperlipidemia; R73.9 Hyperglycemia, unspecified | CPT/HCPCS: 80053; 80061; 83036; 85025; G0103 ==

== ENCOUNTER 2024-08-04 07:33 | Outpatient (CLI) | payer MEDICARE, OTHER, SELFPAY ==
--- NOTE | 2024-08-04 08:00 | CT_ITS ---
WS: [id number] CT chest wo con [id number] HISTORY: R91.1 - Solitary pulmonary nodule TECHNIQUE: Axial imaging performed through the thorax. Coronal and sagittal reformats are submitted. All CT scans at [facility] use at least one of these dose optimization techniques: automated exposure control; mA and/or kV adjustment per patient size (includes targeted exams where dose is matched to clinical indication); or iterative reconstruction. CONTRAST: None DLP: 966.56 mGy.cm COMPARISON: 02/18/2024 Lungs and central airway: Mild hyperinflated lungs. Reidentified at the bilateral upper lobe areas of mild reticulation and nodularity. Mild tree-in-bud airspace disease. These nodules are less than 3 mm and not significantly changed since 02/18/2024. Small nodules extend into the lower lung porras and RIGHT middle lobe. No mass. Pleura: Normal. No pleural effusion. Heart and pericardium: 2 Mediastinum and franky: No mediastinum or hilar adenopathy. Vessels: Mild atherosclerosis aorta. No aneurysm. Normal size pulmonary artery. Chest wall and lower neck: No soft tissue masses. Upper abdomen: Stable RIGHT adrenal myelolipoma measuring 2.0 x 1.8 cm. Negative LEFT adrenal gland. Small hiatal hernia. Osseous structures: No destructive process. CT/CT chest wo con [id number] IMPRESSION: 1. No progression or improvement in the bilateral upper lobe, very subtle tree in airspace disease and micronodules. Few additional micronodules in the lower lobes. With no interval change since 02/18/2024 this may be a chronic nodular pattern. No interval progression of these tiny micronodules. Consider [address] follow-up. 2. No pneumonia. 3. Mild cardiomegaly. 4. Stable RIGHT adrenal myelolipoma.
== END 2024-08-04 07:34 | disposition home or self-care (01) ==
PROVIDERS: PCP Nurse Practitioner; Visit Provider Nurse Practitioner
DX: R91.8 Other nonspecific abnormal finding of lung field (principal); I51.7 Cardiomegaly; D17.79 Benign lipomatous neoplasm of other sites; I70.0 Atherosclerosis of aorta; K44.9 Diaphragmatic hernia without obstruction or gangrene
CPT/HCPCS: 71250

== ENCOUNTER → 2024-09-01 15:31 | Outpatient (BNVA) | payer MEDICARE, OTHER, SELFPAY | PROVIDERS: PCP Nurse Practitioner; Visit Provider Internal Medicine Cardiovascular Disease | DX: I48.91 Unspecified atrial fibrillation (principal); Z79.01 Long term (current) use of anticoagulants; I10 Essential (primary) hypertension; G47.30 Sleep apnea, unspecified; M25.519 Pain in unspecified shoulder; Z85.51 Personal history of malignant neoplasm of bladder | CPT/HCPCS: 99214 ==

== ENCOUNTER → 2024-10-21 08:53 | Outpatient (BNVA) | payer MEDICARE, OTHER, SELFPAY | PROVIDERS: PCP Nurse Practitioner; Visit Provider Nurse Practitioner | DX: I10 Essential (primary) hypertension (principal) | CPT/HCPCS: 80053; 84443 ==

== ENCOUNTER → 2024-11-28 09:20 | Outpatient (BNVA) | payer MEDICARE, OTHER, SELFPAY | PROVIDERS: PCP Nurse Practitioner; Visit Provider Dermatology | DX: L82.1 Other seborrheic keratosis (principal) | CPT/HCPCS: 11102; 17000; 99204 ==

== ENCOUNTER → 2025-04-06 08:03 | Outpatient (BNVA) | payer MEDICARE, OTHER, SELFPAY | PROVIDERS: PCP Nurse Practitioner; Visit Provider Nurse Practitioner | DX: E78.2 Mixed hyperlipidemia (principal) | CPT/HCPCS: 80053; 80061; 85025 ==